=== PATIENT | male | born 1970 | race Caucasian/White ===

== ENCOUNTER → 2022-08-28 | Outpatient (CLI) | payer SELFPAY ==
--- NOTE | 2022-08-28 08:00 | MASS_PTH ---
PATIENT: ROSALIE AMEZQUITA LOC: [facility] U#:[id number] AGE/SX: 52/M ROOM: RE08/28/[address]: Dr. Julio Hudson MD : 1970 BED: DIS: 08/28/2022 SPEC #: [id number] RECD: 08/28/22 09:11 STATUS: MAUREEN CHRISTI #: [id number] LINO: 08/28/22 08:[address]: Julio Hudson DEPT: SURGICAL PATHOLOGY RECD BY: Saima López Tissues: Neck, NOS Procedures: Surgery Specimen Level III HEADER OPERATION: Excision subcutaneous mass left neck PRE-OP DIAGNOSIS: Left neck mass TISSUE SUBMITTED: Subcutaneous mass left neck MICROSCOPIC DIAGNOSIS Subcutaneous mass of left neck, excision: Mature adipose tissue consistent with lipoma. Skin with no pathologic change. AM:misty 08/29/2022 MICROSCOPIC DESCRIPTION Slides are reviewed. GROSS DESCRIPTION Received in fixative is one container labeled with the patient's name and designated left neck mass. The specimen consists of an irregular fragment of page-yellow fibrofatty tissue measuring 3.8 x 2.2 x 2 cm. Attached along one side is a grossly unremarkable ellipse of skin measuring 2.5 x 0.5 cm. The specimen is inked and serially sectioned to reveal homogenous yellow cut surfaces. [employer] sections are submitted in two cassettes. / AM:misty 08/28/2022 TC:1 CPT: 83828
== END | disposition home or self-care (01) ==
PROVIDERS: Visit Provider Surgery
DX: R22.1 Localized swelling, mass and lump, neck (principal)
CPT/HCPCS: 88304; 88305